=== PATIENT | male | born 1995 | race Caucasian/White ===

== ENCOUNTER 2017-05-10 19:09 | Inpatient (IN) | payer MEDICAID ==
[~2017-05-10] VITALS: Ht 180.3 cm; Wt 65.6 kg
[2017-05-10] MEDS ORDERED: SODIUM CHLORIDE 0.9% 1,000 ML IV ONE (19:34)
[2017-05-10] MEDS ORDERED: HYDROmorphone 1 MG/ML, 1ML ONE ×4 (19:52→23:46)
[2017-05-10] MEDS ORDERED: ONDANSETRON 2MG/ML, 2ML ONE (19:52)
[2017-05-10] MEDS: HYDROmorphone 1 MG/ML, 1ML IVPush PRN ×2 (19:55→20:34)
[2017-05-10] MEDS ORDERED: ONDANSETRON 2MG/ML, 2ML IVPush ONE (20:00)
[2017-05-10] MEDS ORDERED: SODIUM CHLORIDE FLUSH 10ML SYR IVF ONE (20:00)
[2017-05-10] MEDS ORDERED: SODIUM CHLORIDE 0.9% 1,000ML IVBOLUS ONE (20:00)
[2017-05-10 20:17] LABS: HEMATOCRIT 45.8 % (39.2-51.8); HEMOGLOBIN 15.2 g/dL (13.7-18.0); WHITE BLOOD COUNT 19.6 x10^3/uL (3.4-10)
[2017-05-10 20:28] LABS: ASPARTATE AMINO TRANSFERASE 44 U/L (15-37); BLOOD UREA NITROGEN 9 mg/dL (7-18); DIFF TOTAL CELLS COUNTED 100 CELL DIFF
[2017-05-10 21:01] LABS: VERIFY COUNTS? YES
[2017-05-10] MEDS ORDERED: OMNIPAQUE 350 MG/ML, 100ML BOTTLE ONE (21:15)
[2017-05-10] MEDS ORDERED: HYDROmorphone 1 MG/ML, 1ML IVPush PRN (22:30)
[2017-05-10] MEDS ORDERED: SODIUM CHLORIDE FLUSH 10ML SYR IVF PRN (23:00)
[2017-05-10 23:14] LABS: DAU SCREEN DISCLAIMER
[2017-05-10] MEDS ORDERED: ONDANSETRON ODT 4 MG PO PRN (23:30)
[2017-05-10] MEDS ORDERED: POLYETHYLENE GLYCOL 17 GM PACKET PO PRN (23:30)
[2017-05-10] MEDS ORDERED: ENALAPRILAT 1.25 MG/ML, 2ML IVPush PRN (23:30)
[2017-05-11 00:05] LABS: HIV 1&2 ANTIBODY SCREEN Nonreactive (Nonreactive); HIV-1 p24 ANTIGEN Nonreactive (Nonreactive)
[2017-05-11 00:41] VITALS: BP 139/77
[2017-05-11] MEDS: SODIUM CHLORIDE 0.9% 1,000 ML IV SCH ×3 (00:50→20:55)
[2017-05-11] MEDS: HYDROcodone/APAP 5/325 TABLET PO PRN ×3 (01:32→09:50)
[2017-05-11] MEDS: TEMAZEPAM 15 MG CAPSULE PO PRN ×2 (02:18→22:48)
[2017-05-11 05:07] LABS: HEMATOCRIT 38.2 % (39.2-51.8); HEMOGLOBIN 13.1 g/dL (13.7-18.0); WHITE BLOOD COUNT 20.8 x10^3/uL (3.4-10)
[2017-05-11 05:20] LABS: ASPARTATE AMINO TRANSFERASE 30 U/L (15-37); BLOOD UREA NITROGEN 7 mg/dL (7-18)
[2017-05-11 07:33] VITALS: BP 120/64
[2017-05-11] MEDS: HYDROmorphone 1 MG/ML, 1ML IV PRN ×3 (11:23→20:55)
[2017-05-11] MEDS ORDERED: VANCOMYCIN PER PHARMACY MC PRN (11:30)
[2017-05-11] MEDS ORDERED: PHARMACOKINETIC MONITORING MC PRN (12:00)
[2017-05-11] MEDS ORDERED: PHARMACOKINETIC CONSULTATION MC ONE (12:00)
[2017-05-11] MEDS ORDERED: GADOBUTROL 10 MMOL/10 ML VIAL ONE (12:47)
[2017-05-11] MEDS: VANCOMYCIN 1,300 MG in SODIUM CHLORIDE 0.9% 250 ML IV SCH (14:49)
[2017-05-11 15:09] VITALS: BP 127/80
[2017-05-11] MEDS: AMPICILLIN/SULBACTAM 1,500 MG in SODIUM CHLORIDE 0.9% 50 ML IV SCH (16:48)
[2017-05-11 19:18] VITALS: BP 144/81
[2017-05-11] MEDS: ENOXAPARIN 40 MG/0.4 ML SQ SCH (20:55)
[2017-05-12] MEDS: AMPICILLIN/SULBACTAM 1,500 MG in SODIUM CHLORIDE 0.9% 50 ML IV SCH ×3 (00:13→15:50)
[2017-05-12 00:46] VITALS: BP 132/77
[2017-05-12] MEDS: ACETAMINOPHEN 325 MG TABLET PO PRN (01:04)
[2017-05-12] MEDS: VANCOMYCIN 1,300 MG in SODIUM CHLORIDE 0.9% 250 ML IV SCH ×2 (01:04→12:50)
[2017-05-12] MEDS: HYDROmorphone 1 MG/ML, 1ML IV PRN ×3 (01:05→10:01)
[2017-05-12 06:07] LABS: HEMATOCRIT 42.8 % (39.2-51.8); HEMOGLOBIN 14.8 g/dL (13.7-18.0); WHITE BLOOD COUNT 17.9 x10^3/uL (3.4-10)
[2017-05-12 06:22] LABS: BLOOD UREA NITROGEN 7 mg/dL (7-18)
[2017-05-12 07:05] VITALS: BP 131/79
[2017-05-12] MEDS: SODIUM CHLORIDE 0.9% 1,000 ML IV SCH ×2 (08:03→15:50)
[2017-05-12] MEDS ORDERED: POTASSIUM CHLORIDE 20 MEQ TAB.ER.PRT PO ONE (09:00)
[2017-05-12] MEDS: MORPHINE SULFATE 4 MG/ML, 1ML IVPush PRN ×2 (12:35→18:37)
[2017-05-12 13:25] VITALS: BP 120/71
[2017-05-12] MEDS: HYDROcodone/APAP 5/325 TABLET PO PRN ×2 (16:01→19:57)
[2017-05-12 19:07] VITALS: BP 119/73
[2017-05-12] MEDS: ENOXAPARIN 40 MG/0.4 ML SQ SCH (19:57)
[2017-05-12] MEDS: TEMAZEPAM 15 MG CAPSULE PO PRN (22:45)
[2017-05-13 00:21] VITALS: BP 120/66
[2017-05-13] MEDS: AMPICILLIN/SULBACTAM 1,500 MG in SODIUM CHLORIDE 0.9% 50 ML IV SCH ×2 (00:36→09:31)
[2017-05-13] MEDS: MORPHINE SULFATE 4 MG/ML, 1ML IVPush PRN ×4 (00:36→23:23)
[2017-05-13] MEDS: SODIUM CHLORIDE 0.9% 1,000 ML IV SCH ×3 (00:36→20:58)
[2017-05-13] MEDS: VANCOMYCIN 1,300 MG in SODIUM CHLORIDE 0.9% 250 ML IV SCH (01:25)
[2017-05-13 01:29] LABS: HEMATOCRIT 40.2 % (39.2-51.8); HEMOGLOBIN 13.6 g/dL (13.7-18.0); WHITE BLOOD COUNT 14.6 x10^3/uL (3.4-10)
[2017-05-13 01:38] LABS: BLOOD UREA NITROGEN 9 mg/dL (7-18)
[2017-05-13] MEDS: HYDROcodone/APAP 5/325 TABLET PO PRN ×3 (04:22→19:50)
[2017-05-13] MEDS: NICOTINE 14MG/24 HR PATCH.TD24 TD SCH (04:23)
[2017-05-13 08:18] VITALS: BP 117/72
[2017-05-13] MEDS ORDERED: VANCOMYCIN 1,300 MG in SODIUM CHLORIDE 0.9% 250 ML IV SCH (09:00)
[2017-05-13] MEDS: ACETAMINOPHEN 325 MG TABLET PO PRN (13:56)
[2017-05-13 14:10] VITALS: BP_SYST 155; BP_SYST 157; BP_DIAS 75; BP_DIAS 83
[2017-05-13] MEDS ORDERED: HYDROmorphone 2 MG/ML, 1ML IVPush PRN ×2 (16:00→19:30)
[2017-05-13] MEDS: KETOROLAC 30 MG/1 ML IVPush SCH ×2 (16:30→22:07)
[2017-05-13] MEDS: AMPICILLIN/SULBACTAM 3 GM in SODIUM CHLORIDE 0.9% 100 ML IV SCH ×2 (16:30→23:23)
[2017-05-13] MEDS: GABAPENTIN 100 MG CAPSULE PO SCH ×2 (16:39→19:49)
[2017-05-13 19:08] VITALS: BP 113/71
[2017-05-13] MEDS ORDERED: ONDANSETRON ODT 4 MG PO PRN (19:30)
[2017-05-13] MEDS ORDERED: TEMAZEPAM 15 MG CAPSULE PO PRN (19:30)
[2017-05-13] MEDS ORDERED: ENALAPRILAT 1.25 MG/ML, 2ML IVPush PRN (19:30)
[2017-05-13] MEDS ORDERED: POLYETHYLENE GLYCOL 17 GM PACKET PO PRN (19:30)
[2017-05-13] MEDS ORDERED: ACETAMINOPHEN 325 MG TABLET PO PRN (19:30)
[2017-05-13] MEDS: ENOXAPARIN 40 MG/0.4 ML SQ SCH (19:49)
[2017-05-14 01:59] VITALS: BP 119/75
[2017-05-14] MEDS: HYDROcodone/APAP 5/325 TABLET PO PRN ×3 (02:36→15:39)
[2017-05-14] MEDS: NICOTINE 14MG/24 HR PATCH.TD24 TD SCH (02:37)
[2017-05-14] MEDS: KETOROLAC 30 MG/1 ML IVPush SCH ×3 (04:14→15:39)
[2017-05-14 05:00] LABS: HEMATOCRIT 34.9 % (39.2-51.8); HEMOGLOBIN 11.8 g/dL (13.7-18.0); WHITE BLOOD COUNT 10.8 x10^3/uL (3.4-10)
[2017-05-14 05:09] LABS: BLOOD UREA NITROGEN 9 mg/dL (7-18)
[2017-05-14] MEDS: GABAPENTIN 100 MG CAPSULE PO SCH ×3 (05:22→15:39)
[2017-05-14] MEDS: SODIUM CHLORIDE 0.9% 1,000 ML IV SCH ×2 (05:23→15:33)
[2017-05-14] MEDS: MORPHINE SULFATE 4 MG/ML, 1ML IVPush PRN ×2 (05:23→11:51)
[2017-05-14 08:02] VITALS: BP 118/69
[2017-05-14] MEDS: AMPICILLIN/SULBACTAM 3 GM in SODIUM CHLORIDE 0.9% 100 ML IV SCH ×2 (08:26→15:39)
[2017-05-14] MEDS ORDERED: BISACODYL 10 MG SUPP PR PRN (08:30)
[2017-05-14 14:19] VITALS: BP_SYST 114; BP_SYST 98; BP_DIAS 70; BP_DIAS 72
== END 2017-05-14 16:40 | disposition left against medical advice (07) | DRG 372 ==
LOC: ED 21:46 → EDIP 23:01 → 4WST 05-11 00:25
PROVIDERS: ADMIT Hospitalist; ATTEND Hospitalist
DX: K65.1 Peritoneal abscess (principal); R78.81 Bacteremia; E87.1 Hypo-osmolality and hyponatremia; F11.20 Opioid dependence, uncomplicated; K83.8 Other specified diseases of biliary tract; Z88.8 Allergy status to other drugs, medicaments and biological substances; B19.20 Unspecified viral hepatitis C without hepatic coma; B95.61 Methicillin susceptible Staphylococcus aureus infection as the cause of diseases classified elsewhere; D72.829 Elevated white blood cell count, unspecified; E87.6 Hypokalemia; F17.210 Nicotine dependence, cigarettes, uncomplicated; F19.90 Other psychoactive substance use, unspecified, uncomplicated; K59.00 Constipation, unspecified
CPT/HCPCS: 36415; 72197; 74177; 76700; 80048; 80053; 80202; 80307; 81001; 82550; 83605; 83690; 83735; 84100; 85025; 85610; 85730; 86703; 86803; 87040; 87077; 87147; 87186; 87491; 87521; 87591; 87899; 93306; 96361; 96374; 96375; 96376; A9585; J0295; J1170; J1650; J1885; J2405; J3370; Q9967; G0435; G0479; J7030; J7050

== ENCOUNTER 2017-05-17 17:28 | Inpatient (IN) | payer MEDICAID ==
[~2017-05-17] VITALS: Ht 180.3 cm; Wt 66.0 kg
[2017-05-17] MEDS ORDERED: KETOROLAC 30 MG/1 ML ONE (17:56)
[2017-05-17] MEDS ORDERED: HYDROmorphone 1 MG/ML, 1ML ONE ×2 (17:57→19:25)
[2017-05-17] MEDS ORDERED: SODIUM CHLORIDE 0.9% 1,000ML IVBOLUS ONE (18:00)
[2017-05-17] MEDS ORDERED: AMPICILLIN/SULBACTAM 3 GM in SODIUM CHLORIDE 0.9% 100 ML IV ONE (18:00)
[2017-05-17] MEDS ORDERED: MORPHINE SULFATE 4 MG/ML, 1ML IVPush PRN (18:00)
[2017-05-17] MEDS ORDERED: SODIUM CHLORIDE FLUSH 10ML SYR IVF ONE (18:00)
[2017-05-17] MEDS ORDERED: KETOROLAC 30 MG/1 ML IVPush ONE (18:00)
[2017-05-17] MEDS: HYDROmorphone 2 MG/ML, 1ML IVPush PRN ×4 (18:11→22:51)
[2017-05-17 18:22] LABS: ASPARTATE AMINO TRANSFERASE 57 U/L (15-37); BLOOD UREA NITROGEN 12 mg/dL (7-18); HEMATOCRIT 44.8 % (39.2-51.8); WHITE BLOOD COUNT 9.9 x10^3/uL (3.4-10)
[2017-05-17] MEDS ORDERED: PHARMACY MAY ADJ FOR RENAL FX MC PRN (19:30)
[2017-05-17] MEDS ORDERED: ONDANSETRON 2MG/ML, 2ML IVPush PRN (19:30)
[2017-05-17] MEDS ORDERED: hydrALAzine 20 MG/ML, 1ML IVPush PRN (19:30)
[2017-05-17] MEDS ORDERED: VANCOMYCIN PER PHARMACY MC PRN (19:30)
[2017-05-17] MEDS ORDERED: LORazepam 2 MG/ML, 1ML IVPush PRN (19:30)
[2017-05-17] MEDS ORDERED: PHARMACOKINETIC CONSULTATION MC ONE (22:00)
[2017-05-17] MEDS ORDERED: PHARMACOKINETIC MONITORING MC PRN (22:00)
[2017-05-17 22:16] VITALS: BP 108/62
[2017-05-17] MEDS ORDERED: NICOTINE 21 MG/24 HR PATCH.TD24 TD ONE (22:30)
[2017-05-17] MEDS: ENOXAPARIN 40 MG/0.4 ML SQ SCH (22:55)
[2017-05-17] MEDS: FAMOTIDINE 20 MG/2 ML IVPush SCH (22:56)
[2017-05-17] MEDS: PIPERACILLIN/TAZO/PMX 4.5GM 100 ML IVPB SCH (23:05)
[2017-05-17] MEDS: VANCOMYCIN 1,400 MG in SODIUM CHLORIDE 0.9% 250 ML IV SCH (23:47)
[2017-05-18 03:29] VITALS: BP 115/72
[2017-05-18] MEDS: HYDROmorphone 2 MG/ML, 1ML IVPush PRN ×6 (04:18→23:59)
[2017-05-18] MEDS: PIPERACILLIN/TAZO/PMX 4.5GM 100 ML IVPB SCH ×3 (04:58→18:23)
[2017-05-18 05:53] LABS: HEMATOCRIT 35.6 % (39.2-51.8); HEMOGLOBIN 11.8 g/dL (13.7-18.0); WHITE BLOOD COUNT 8.7 x10^3/uL (3.4-10)
[2017-05-18 06:07] LABS: BLOOD UREA NITROGEN 16 mg/dL (7-18)
[2017-05-18 07:12] VITALS: BP 104/58
[2017-05-18] MEDS ORDERED: FLU VACC QS2017-18 (36MOS+) UP/PF 0.5 ML IM-VACC ONE (11:00)
[2017-05-18] MEDS ORDERED: PNEUMOCOCCAL 23 VACCINE IM-VACC ONE (11:00)
[2017-05-18] MEDS: FAMOTIDINE 20 MG/2 ML IVPush SCH ×2 (11:08→20:39)
[2017-05-18] MEDS: METHADONE 5 MG TABLET PO SCH ×3 (12:50→23:25)
[2017-05-18 13:15] VITALS: BP 114/66
[2017-05-18] MEDS: VANCOMYCIN 1,400 MG in SODIUM CHLORIDE 0.9% 250 ML IV SCH (14:38)
[2017-05-18 16:41] LABS: HIV 1&2 ANTIBODY SCREEN Nonreactive (Nonreactive); HIV-1 p24 ANTIGEN Nonreactive (Nonreactive)
[2017-05-18] MEDS: CEFAZOLIN PMX 2GM/50ML 50 ML IV SCH (19:00)
[2017-05-18 20:29] VITALS: BP 104/64
[2017-05-18] MEDS: NICOTINE 21 MG/24 HR PATCH.TD24 TD SCH (21:27)
[2017-05-18] MEDS: ENOXAPARIN 40 MG/0.4 ML SQ SCH (22:41)
[2017-05-19 02:30] VITALS: BP 112/72
[2017-05-19] MEDS: CEFAZOLIN PMX 2GM/50ML 50 ML IV SCH ×3 (03:09→21:02)
[2017-05-19 05:35] LABS: HEMATOCRIT 36.2 % (39.2-51.8); HEMOGLOBIN 12.2 g/dL (13.7-18.0); WHITE BLOOD COUNT 12.8 x10^3/uL (3.4-10)
[2017-05-19 05:37] LABS: BLOOD UREA NITROGEN 16 mg/dL (7-18)
[2017-05-19] MEDS: METHADONE 5 MG TABLET PO SCH ×3 (06:36→18:29)
[2017-05-19] MEDS: HYDROmorphone 2 MG/ML, 1ML IVPush PRN ×6 (06:42→22:16)
[2017-05-19 07:10] VITALS: BP 110/67
[2017-05-19] MEDS: FAMOTIDINE 20 MG TABLET PO SCH ×2 (09:38→21:02)
[2017-05-19 13:43] VITALS: BP 104/61
[2017-05-19] MEDS ORDERED: HYDROmorphone 1 MG/ML, 1ML ONE ×2 (19:16→22:13)
[2017-05-19 19:23] VITALS: BP 125/64
[2017-05-19] MEDS: NICOTINE 21 MG/24 HR PATCH.TD24 TD SCH (21:04)
[2017-05-19] MEDS: ENOXAPARIN 40 MG/0.4 ML SQ SCH (21:04)
[2017-05-20] MEDS: METHADONE 5 MG TABLET PO SCH ×4 (00:20→18:04)
[2017-05-20] MEDS ORDERED: HYDROmorphone 1 MG/ML, 1ML ONE ×6 (01:10→23:54)
[2017-05-20] MEDS: HYDROmorphone 2 MG/ML, 1ML IVPush PRN ×7 (01:13→21:07)
[2017-05-20 01:23] VITALS: BP 106/64
[2017-05-20] MEDS: CEFAZOLIN PMX 2GM/50ML 50 ML IV SCH ×3 (04:31→21:08)
[2017-05-20 05:15] LABS: HEMATOCRIT 35.4 % (39.2-51.8); WHITE BLOOD COUNT 11.5 x10^3/uL (3.4-10)
[2017-05-20 05:26] LABS: BLOOD UREA NITROGEN 16 mg/dL (7-18)
[2017-05-20] MEDS: FAMOTIDINE 20 MG TABLET PO SCH ×2 (07:39→21:08)
[2017-05-20 08:11] VITALS: BP 104/61
[2017-05-20 15:43] VITALS: BP 113/65
[2017-05-20 20:41] VITALS: BP 122/69
[2017-05-20] MEDS: NICOTINE 21 MG/24 HR PATCH.TD24 TD SCH (21:08)
[2017-05-20] MEDS: ENOXAPARIN 40 MG/0.4 ML SQ SCH (22:00)
[2017-05-21] MEDS: HYDROmorphone 2 MG/ML, 1ML IVPush PRN ×7 (00:01→21:04)
[2017-05-21] MEDS: METHADONE 5 MG TABLET PO SCH ×4 (00:01→18:22)
[2017-05-21] MEDS ORDERED: HYDROmorphone 1 MG/ML, 1ML ONE ×3 (03:24→20:23)
[2017-05-21] MEDS: CEFAZOLIN PMX 2GM/50ML 50 ML IV SCH ×3 (03:29→21:04)
[2017-05-21 03:38] VITALS: BP 115/78
[2017-05-21 05:14] LABS: ASPARTATE AMINO TRANSFERASE 39 U/L (15-37); BLOOD UREA NITROGEN 15 mg/dL (7-18)
[2017-05-21 05:19] LABS: HEMATOCRIT 34.4 % (39.2-51.8); HEMOGLOBIN 11.6 g/dL (13.7-18.0); WHITE BLOOD COUNT 10.2 x10^3/uL (3.4-10)
[2017-05-21 05:40] LABS: DIFF TOTAL CELLS COUNTED 100 CELL DIFF
[2017-05-21 05:43] LABS: VERIFY COUNTS? YES
[2017-05-21 08:39] VITALS: BP 115/72
[2017-05-21] MEDS: FAMOTIDINE 20 MG TABLET PO SCH ×2 (09:18→21:04)
[2017-05-21 12:06] LABS: HEPATITIS C PCR QUANTITATION 659000 IU/mL (.)
[2017-05-21 14:30] VITALS: BP 111/65
[2017-05-21 20:17] VITALS: BP 123/76
[2017-05-21] MEDS: NICOTINE 21 MG/24 HR PATCH.TD24 TD SCH (21:06)
[2017-05-21] MEDS: ENOXAPARIN 40 MG/0.4 ML SQ SCH (22:00)
[2017-05-22] MEDS ORDERED: HYDROmorphone 1 MG/ML, 1ML ONE ×5 (00:05→23:59)
[2017-05-22] MEDS: METHADONE 5 MG TABLET PO SCH ×4 (00:10→18:23)
[2017-05-22] MEDS: HYDROmorphone 2 MG/ML, 1ML IVPush PRN ×7 (00:11→20:40)
[2017-05-22 01:50] VITALS: BP 132/88
[2017-05-22] MEDS: CEFAZOLIN PMX 2GM/50ML 50 ML IV SCH ×3 (03:37→20:39)
[2017-05-22 05:17] LABS: HEMATOCRIT 36.2 % (39.2-51.8); HEMOGLOBIN 12.2 g/dL (13.7-18.0); WHITE BLOOD COUNT 11.2 x10^3/uL (3.4-10)
[2017-05-22 05:28] LABS: BLOOD UREA NITROGEN 18 mg/dL (7-18)
[2017-05-22 08:29] VITALS: BP 141/88
[2017-05-22] MEDS: FAMOTIDINE 20 MG TABLET PO SCH ×2 (08:36→20:40)
[2017-05-22 14:16] VITALS: BP 135/80
[2017-05-22] MEDS: NICOTINE 21 MG/24 HR PATCH.TD24 TD SCH (20:40)
[2017-05-22 21:25] VITALS: BP 129/75
[2017-05-22] MEDS: ENOXAPARIN 40 MG/0.4 ML SQ SCH (22:00)
[2017-05-23] MEDS: METHADONE 5 MG TABLET PO SCH ×3 (00:05→12:10)
[2017-05-23] MEDS: HYDROmorphone 2 MG/ML, 1ML IVPush PRN ×3 (00:06→06:06)
[2017-05-23 01:50] VITALS: BP 122/72
[2017-05-23] MEDS ORDERED: HYDROmorphone 1 MG/ML, 1ML ONE ×2 (03:02→05:47)
[2017-05-23] MEDS: CEFAZOLIN PMX 2GM/50ML 50 ML IV SCH ×2 (04:33→12:10)
[2017-05-23 05:44] LABS: HEMATOCRIT 37.2 % (39.2-51.8); HEMOGLOBIN 12.7 g/dL (13.7-18.0); WHITE BLOOD COUNT 8.6 x10^3/uL (3.4-10)
[2017-05-23 06:09] LABS: BLOOD UREA NITROGEN 21 mg/dL (7-18)
[2017-05-23 06:45] VITALS: BP 126/75
[2017-05-23] MEDS: FAMOTIDINE 20 MG TABLET PO SCH (08:29)
== END 2017-05-23 12:14 | disposition left against medical advice (07) | DRG 871 ==
LOC: ED 20:07 → EDIP 20:15 → 3NE 21:42
PROVIDERS: ADMIT Internal Medicine; ATTEND Internal Medicine
DX: A41.9 Sepsis, unspecified organism (principal); K65.1 Peritoneal abscess; M60.09 Infective myositis, multiple sites; F11.20 Opioid dependence, uncomplicated; F17.200 Nicotine dependence, unspecified, uncomplicated; F19.10 Other psychoactive substance abuse, uncomplicated; B19.20 Unspecified viral hepatitis C without hepatic coma; M79.604 Pain in right leg; R00.0 Tachycardia, unspecified; F15.10 Other stimulant abuse, uncomplicated; B95.61 Methicillin susceptible Staphylococcus aureus infection as the cause of diseases classified elsewhere; Z59.0 Homelessness; Z88.8 Allergy status to other drugs, medicaments and biological substances; Z91.19 Patient's noncompliance with other medical treatment and regimen
CPT/HCPCS: 36415; 80048; 80053; 80074; 80076; 82565; 83605; 84520; 85025; 85651; 86140; 86703; 86708; 87040; 87077; 87147; 87186; 87521; 87522; 87899; 90686; 90732; 93005; 96365; 96375; J0295; J0690; J1170; J1650; J1885; J2543; J3370; G0435; J7030; J7050; S0028

== ENCOUNTER 2017-07-12 18:58 | Inpatient (IN) | payer MEDICAID ==
[~2017-07-12] VITALS: Ht 180.3 cm; Wt 64.1 kg
[2017-07-12 19:45] LABS: HEMATOCRIT 39.3 % (39.2-51.8); HEMOGLOBIN 12.9 g/dL (13.7-18.0); WHITE BLOOD COUNT 12.1 x10^3/uL (3.4-10)
[2017-07-12 19:58] LABS: ASPARTATE AMINO TRANSFERASE 55 U/L (15-37); BLOOD UREA NITROGEN 9 mg/dL (7-18)
[2017-07-12] MEDS ORDERED: HYDROmorphone 2 MG/ML, 1ML ONE (21:00)
[2017-07-12] MEDS ORDERED: HYDROmorphone 1 MG/ML, 1ML IM ONE (21:30)
[2017-07-12] MEDS ORDERED: OMNIPAQUE 350 MG/ML, 100ML BOTTLE ONE (22:08)
[2017-07-12] MEDS ORDERED: VANCOMYCIN PER PHARMACY MC ONE (22:35)
[2017-07-12] MEDS ORDERED: CEFTRIAXONE PMX 1GM/50ML 50 ML ONE (22:58)
[2017-07-12] MEDS ORDERED: CEFTRIAXONE PMX 1GM/50ML 50 ML IV ONE (23:00)
[2017-07-12] MEDS ORDERED: VANCOMYCIN 1,400 MG in SODIUM CHLORIDE 0.9% 250 ML IV ONE (23:00)
[2017-07-12] MEDS ORDERED: ONDANSETRON 2MG/ML, 2ML IVPush PRN (23:30)
[2017-07-12] MEDS ORDERED: hydrALAzine 20 MG/ML, 1ML IVPush PRN (23:30)
[2017-07-12] MEDS ORDERED: VANCOMYCIN PER PHARMACY MC PRN (23:30)
[2017-07-12] MEDS ORDERED: ACETAMINOPHEN 325 MG TABLET PO PRN (23:30)
[2017-07-12] MEDS ORDERED: POLYETHYLENE GLYCOL 17 GM PACKET PO PRN (23:30)
[2017-07-12] MEDS ORDERED: PHARMACOKINETIC MONITORING MC PRN (23:45)
[2017-07-13] MEDS ORDERED: NICOTINE 21 MG/24 HR PATCH.TD24 TD ONE (00:30)
[2017-07-13 01:00] VITALS: BP 123/61
[2017-07-13 01:23] VITALS: BP 124/63
[2017-07-13] MEDS: HYDROmorphone 2 MG/ML, 1ML IVPush PRN ×5 (01:42→22:18)
[2017-07-13 07:50] VITALS: BP 106/63
[2017-07-13] MEDS ORDERED: LACTULOSE 20 GM/30 ML UDC PO ONE (08:30)
[2017-07-13] MEDS: SENNA/DOCUSATE TABLET PO SCH (09:00)
[2017-07-13] MEDS: ENOXAPARIN 40 MG/0.4 ML SQ SCH (09:00)
[2017-07-13] MEDS: CEFTRIAXONE PMX 1GM/50ML 50 ML IV SCH ×2 (11:08→22:56)
[2017-07-13 13:39] VITALS: BP 126/74
[2017-07-13] MEDS: VANCOMYCIN 1,400 MG in SODIUM CHLORIDE 0.9% 250 ML IV SCH (15:27)
[2017-07-13 20:43] VITALS: BP 132/66
[2017-07-14] MEDS: HYDROmorphone 2 MG/ML, 1ML IVPush PRN ×6 (01:28→23:02)
[2017-07-14 02:51] VITALS: BP 123/77
[2017-07-14] MEDS: VANCOMYCIN 1,400 MG in SODIUM CHLORIDE 0.9% 250 ML IV SCH ×2 (04:22→16:34)
[2017-07-14 07:54] VITALS: BP 132/77
[2017-07-14] MEDS: ENOXAPARIN 40 MG/0.4 ML SQ SCH (07:54)
[2017-07-14] MEDS: SENNA/DOCUSATE TABLET PO SCH ×2 (07:54→08:37)
[2017-07-14] MEDS: CEFTRIAXONE PMX 1GM/50ML 50 ML IV SCH ×2 (11:36→23:05)
[2017-07-14 12:57] LABS: HEMATOCRIT 40.5 % (39.2-51.8); HEMOGLOBIN 13.6 g/dL (13.7-18.0); WHITE BLOOD COUNT 10.3 x10^3/uL (3.4-10)
[2017-07-14] MEDS ORDERED: LORazepam 2 MG/ML, 1ML IVPush ONE (13:00)
[2017-07-14 13:11] LABS: ASPARTATE AMINO TRANSFERASE 39 U/L (15-37); BLOOD UREA NITROGEN 5 mg/dL (7-18)
[2017-07-14 13:16] LABS: DAU SCREEN DISCLAIMER
[2017-07-14] MEDS ORDERED: GADOBUTROL 7.5 MMOL/7.5 ML PFS ONE (13:40)
[2017-07-14 14:02] VITALS: BP 132/83
[2017-07-14 19:55] VITALS: BP 124/74
[2017-07-14] MEDS: LACTULOSE 10 GM/15 ML UDC PO SCH (20:06)
[2017-07-14] MEDS: TEMAZEPAM 15 MG CAPSULE PO PRN (23:02)
[2017-07-15 02:43] VITALS: BP 144/86
[2017-07-15] MEDS: HYDROmorphone 2 MG/ML, 1ML IVPush PRN ×7 (03:57→23:29)
[2017-07-15] MEDS: VANCOMYCIN 1,400 MG in SODIUM CHLORIDE 0.9% 250 ML IV SCH (03:59)
[2017-07-15 07:43] VITALS: BP 126/74
[2017-07-15] MEDS: SENNA/DOCUSATE TABLET PO SCH (08:34)
[2017-07-15] MEDS: LACTULOSE 10 GM/15 ML UDC PO SCH ×2 (08:34→20:15)
[2017-07-15] MEDS: ENOXAPARIN 40 MG/0.4 ML SQ SCH (08:34)
[2017-07-15] MEDS ORDERED: CEFAZOLIN 2,000 MG in SODIUM CHLORIDE 0.9% 50 ML IV SCH (12:00)
[2017-07-15] MEDS: CEFAZOLIN PMX 2GM/50ML 50 ML IVPB SCH ×2 (12:30→20:15)
[2017-07-15] MEDS ORDERED: DIPHTHERIA-TETANUS ADULT 0.5ML IM-VACC ONE (12:30)
[2017-07-15 13:41] VITALS: BP 138/90
[2017-07-15 20:16] VITALS: BP 136/86
[2017-07-15] MEDS: TEMAZEPAM 15 MG CAPSULE PO PRN (22:39)
[2017-07-16] MEDS: HYDROmorphone 2 MG/ML, 1ML IVPush PRN ×7 (03:07→23:01)
[2017-07-16] MEDS: CEFAZOLIN PMX 2GM/50ML 50 ML IVPB SCH ×3 (04:19→19:52)
[2017-07-16 04:23] VITALS: BP 126/76
[2017-07-16 07:17] LABS: HEMATOCRIT 39.5 % (39.2-51.8); HEMOGLOBIN 13.4 g/dL (13.7-18.0); WHITE BLOOD COUNT 5.5 x10^3/uL (3.4-10)
[2017-07-16 07:21] LABS: ASPARTATE AMINO TRANSFERASE 80 U/L (15-37); BLOOD UREA NITROGEN 8 mg/dL (7-18)
[2017-07-16 07:40] VITALS: BP 128/90
[2017-07-16 07:48] LABS: HIV 1&2 ANTIBODY SCREEN Nonreactive (Nonreactive); HIV-1 p24 ANTIGEN Nonreactive (Nonreactive)
[2017-07-16] MEDS: SENNA/DOCUSATE TABLET PO SCH (11:40)
[2017-07-16] MEDS: LACTULOSE 10 GM/15 ML UDC PO SCH ×2 (11:41→19:52)
[2017-07-16] MEDS: ENOXAPARIN 40 MG/0.4 ML SQ SCH (11:41)
[2017-07-16 12:55] VITALS: BP 115/62
[2017-07-16 18:57] LABS: ASPARTATE AMINO TRANSFERASE 83 U/L (15-37); BLOOD UREA NITROGEN 10 mg/dL (7-18)
[2017-07-16 20:52] VITALS: BP 120/69
[2017-07-17] MEDS: TEMAZEPAM 15 MG CAPSULE PO PRN (02:18)
[2017-07-17] MEDS: HYDROmorphone 2 MG/ML, 1ML IVPush PRN ×5 (02:18→20:25)
[2017-07-17 03:17] VITALS: BP 124/68
[2017-07-17] MEDS: CEFAZOLIN PMX 2GM/50ML 50 ML IVPB SCH ×3 (03:36→20:25)
[2017-07-17 07:49] VITALS: BP 144/89
[2017-07-17 08:57] LABS: HEP B SURF. AB 789.9 mIU/mL (0.0-10.0)
[2017-07-17] MEDS: ENOXAPARIN 40 MG/0.4 ML SQ SCH (09:00)
[2017-07-17] MEDS: SENNA/DOCUSATE TABLET PO SCH (09:47)
[2017-07-17] MEDS: LACTULOSE 10 GM/15 ML UDC PO SCH ×2 (09:47→20:25)
[2017-07-17 13:54] VITALS: BP 117/65
[2017-07-17 20:27] VITALS: BP 129/77
[2017-07-18 03:21] VITALS: BP 127/70
[2017-07-18] MEDS: HYDROmorphone 2 MG/ML, 1ML IVPush PRN ×3 (03:23→09:32)
[2017-07-18] MEDS: CEFAZOLIN PMX 2GM/50ML 50 ML IVPB SCH ×2 (03:50→12:38)
[2017-07-18 06:54] VITALS: BP 119/66
[2017-07-18] MEDS: SENNA/DOCUSATE TABLET PO SCH (09:32)
[2017-07-18] MEDS: LACTULOSE 10 GM/15 ML UDC PO SCH (09:32)
[2017-07-18] MEDS: ENOXAPARIN 40 MG/0.4 ML SQ SCH (09:33)
[2017-07-18] MEDS ORDERED: METHADONE 10 MG TABLET PO SCH (10:00)
[2017-07-18] MEDS ORDERED: METHADONE 10 MG TABLET PO PRN (10:00)
[2017-07-18 13:40] VITALS: BP 124/67
[2017-07-18] MEDS ORDERED: KETOROLAC 30 MG/1 ML IVPush SCH (14:00)
== END 2017-07-18 16:52 | disposition left against medical advice (07) | DRG 871 ==
LOC: ED 20:23 → EDIP 23:02 → 3NE 23:42
PROVIDERS: ADMIT Surgery; ATTEND Family Medicine
DX: A41.01 Sepsis due to Methicillin susceptible Staphylococcus aureus (principal); K65.1 Peritoneal abscess; E87.1 Hypo-osmolality and hyponatremia; M00.9 Pyogenic arthritis, unspecified; F11.23 Opioid dependence with withdrawal; M60.009 Infective myositis, unspecified site; M86.8X8 Other osteomyelitis, other site; B18.2 Chronic viral hepatitis C; F17.210 Nicotine dependence, cigarettes, uncomplicated; Z53.21 Procedure and treatment not carried out due to patient leaving prior to being seen by health care provider; K59.03 Drug induced constipation; T40.605A Adverse effect of unspecified narcotics, initial encounter; Z59.0 Homelessness; Z91.14 Patient's other noncompliance with medication regimen; Z99.3 Dependence on wheelchair
CPT/HCPCS: 36415; 72190; 72193; 72197; 80053; 80202; 80307; 82550; 83605; 85025; 85651; 86140; 86480; 86592; 86703; 86704; 86706; 87040; 87077; 87147; 87186; 87340; 87899; 90714; 93005; 93306; 96372; 96374; 96375; A9585; J0690; J0696; J1170; J1650; J3370; Q9967; G0435; G0479; J2060; J7050